=== PATIENT | female | born 1955 | race Hispanic/Latino ===

== ENCOUNTER 2018-08-05 14:52 | Outpatient (CLI) | payer BC ==
--- NOTE | 2018-08-05 15:18 | XRay Report ---
AP ABDOMEN: HISTORY: Abdomen pain. The abdominal gas pattern is unremarkable. No masses or organomegaly is identified and there is no gross evidence of free air or fluid. No significant soft tissue calcifications are noted. IMPRESSION: Unremarkable abdomen.
== END 2018-08-05 14:53 | disposition home or self-care (01) ==
LOC: SPVIMAG 14:52
PROVIDERS: ATTEND Internal Medicine Hematology & Oncology
DX: R10.30 Lower abdominal pain, unspecified (principal)
CPT/HCPCS: 74018

== ENCOUNTER 2018-10-29 12:51 | Outpatient (CLI) | payer BC ==
--- NOTE | 2018-10-29 13:29 | XRay Report ---
CHEST 2 VIEWS INDICATION: COUGH. COMPARISON: None. FINDINGS: Support devices: Right Vhxvji-m-Ssel tip in the distal SVC Heart: Normal. Pulmonary vasculature: Normal. Lungs/pleura: The lungs are normally expanded and clear except for a right basal calcified granuloma. No airspace disease or pleural effusion. Additional findings: Thoracic spondylosis. Normal soft tissues.. IMPRESSION: 1. No acute findings. Signer Name: Jose Smith MD Signed: 10/29/2018 1:24 PM Workstation Name: [id number]
== END 2018-10-29 12:52 | disposition home or self-care (01) ==
LOC: XRAY 12:51 → SPVIMAG 12:51
PROVIDERS: ATTEND Internal Medicine Hematology & Oncology
DX: R05 Cough (principal); C50.412 Malignant neoplasm of upper-outer quadrant of left female breast
CPT/HCPCS: 71046